=== PATIENT | male | born 1995 | race African-American/Black ===

== ENCOUNTER 2018-11-13 20:11 | Emergency (ER) | payer BC ==
[~2018-11-13] VITALS: Ht 182.9 cm; Wt 81.8 kg
[2018-11-13 20:14] VITALS: BP 126/75
== END 2018-11-13 21:20 | disposition home or self-care (01) ==
LOC: ER 20:11
DX: S93.491A Sprain of other ligament of right ankle, initial encounter (principal); X58.XXXA Exposure to other specified factors, initial encounter; Y93.89 Activity, other specified; Y92.89 Other specified places as the place of occurrence of the external cause; Y99.8 Other external cause status
CPT/HCPCS: 29540; 99283